=== PATIENT | female | born 1990 | race Caucasian/White ===

== ENCOUNTER 2018-09-05 00:07 | Emergency (ER) | payer MEDICAID ==
[~2018-09-05] VITALS: Ht 165.1 cm; Wt 56.8 kg
[2018-09-05 01:16] LABS: APPEARANCE,URINE CLOUDY (CLEAR); BILIRUBIN,URINE NEGATIVE (NEGATIVE); GLUCOSE, URINE (UA) NEGATIVE (NEGATIVE); KETONES,URINE NEGATIVE (NEGATIVE); LEUKOCYTE ESTERASE ,URINE MODERATE (NEGATIVE); NITRATE,URINE NEGATIVE (NEGATIVE); OCCULT BLOOD,URINE LARGE (NEGATIVE); PH,URINE 7.5 (5.0-8.0); PROTEIN,URINE SEE CONFIRM (NEGATIVE); UROBILINOGEN,URINE 0.2 mg/dL (<=1.0)
[2018-09-05 01:27] LABS: SULFOSALICYLIC ACID,URINE 2+ (Negative); WBC,URINE 26-50 /HPF (0-5)
[2018-09-05 01:28] LABS: BACTERIA,URINE Few /HPF (None Seen); RBC,URINE 26-50 /HPF (0-2); SQUAMOUS EPITHELIAL CELL,UR Few /LPF (None Seen)
[2018-09-05 05:45] VITALS: BP 130/75
[2018-09-05] MEDS ORDERED: CEPHALEXIN MONOHYDRATE 500 MG CAPSULE PO ONE (05:45)
[2018-09-05] MEDS ORDERED: PHENAZOPYRIDINE HCL 100 MG TABLET PO ONE (05:45)
[2018-09-05] MEDS ORDERED: SULFAMETHOX/TRIMETH DS 800-160 MG/TABLET PO ONE (05:45)
== END 2018-09-05 05:55 | disposition home or self-care (01) ==
LOC: EMS 00:12
DX: N39.0 Urinary tract infection, site not specified (principal); Z88.1 Allergy status to other antibiotic agents
CPT/HCPCS: 87086